=== PATIENT | female | born 1985 | race Two or more races ===

== ENCOUNTER 2022-03-08 10:28 | Outpatient (CLI) | payer BC | END 2022-03-08 10:35 | disposition home or self-care (01) | LOC: SONOGRAMA 10:28 | PROVIDERS: ATTEND General Practice | DX: M25.512 Pain in left shoulder (principal) ==

== ENCOUNTER 2022-03-10 08:13 | Outpatient (CLI) | payer BC | END 2022-03-10 08:17 | disposition home or self-care (01) | LOC: RAD 08:13 | PROVIDERS: ATTEND Orthopaedic Surgery | DX: M25.512 Pain in left shoulder (principal) ==

== ENCOUNTER 2024-02-01 05:27 | Emergency (ER) | payer BC ==
[~2024-02-01] VITALS: Ht 157.5 cm; Wt 57.6 kg
[2024-02-01] MEDS ORDERED: DIPHENHYDRAMINE HCL 50 MG/ML VIAL 1ML IV STA (05:42)
[2024-02-01] MEDS ORDERED: FAMOTIDINE/PF 20 MG/2 ML VIAL IV PUSH STA (05:42)
[2024-02-01] MEDS ORDERED: EPINEPHRINE HCL/PF 1 MG/ML AMPUL SUBCUTANEO STA (05:42)
[2024-02-01] MEDS ORDERED: METHYLPREDNISOLONE SOD SUCC 125 MG VIAL IV STA (05:42)
[2024-02-01] MEDS ORDERED: NAPHAZOLINE HCL/PHENIRAMINE 20 DR/ML DROPS OP STA (05:43)
[2024-02-01] MEDS ORDERED: METHYLPREDNISOLONE SOD SUCC 125 MG VIAL IV SCH (12:00)
[2024-02-01] MEDS ORDERED: EPINEPHRINE HCL/PF 1 MG/ML AMPUL SUBCUTANEO ONE (12:00)
[2024-02-01] MEDS ORDERED: DIPHENHYDRAMINE HCL 50 MG/ML VIAL 1ML IV SCH (12:00)
== END 2024-02-01 08:55 | disposition home or self-care (01) ==
LOC: ER 05:30
DX: R21 Rash and other nonspecific skin eruption (principal); T78.40XA Allergy, unspecified, initial encounter; Z88.8 Allergy status to other drugs, medicaments and biological substances